=== PATIENT | female | born 1995 | race Caucasian/White ===

== ENCOUNTER 2020-08-06 06:57 | Emergency (ER) | payer OTHER ==
[~2020-08-06] VITALS: Ht 149.9 cm; Wt 49.4 kg
[2020-08-06] MEDS ORDERED: MAGNESIUM30 MG (07:35)
[2020-08-06] MEDS ORDERED: NEXIUM10 MG (07:36)
[2020-08-06] MEDS ORDERED: PEPCID AC20 MG (07:36)
[2020-08-06] MEDS ORDERED: PROBIOTIC1 EAC2 (07:36)
== END 2020-08-06 16:49 | disposition home or self-care (01) ==
LOC: ER 06:57
DX: R10.13 Epigastric pain (principal); K52.89 Other specified noninfective gastroenteritis and colitis; E86.0 Dehydration; E87.6 Hypokalemia